=== PATIENT | male | born 1960 | race Caucasian/White ===

== ENCOUNTER → 2018-03-17 11:23 | Outpatient (CLI) | payer BC, SELFPAY ==
--- NOTE | 2018-03-17 11:51 | RAD_ITS ---
STUDY: X-RAY - PELVIS AND LEFT HIP REASON FOR EXAM: Male, 57 years old. Chronic left hip pain, no known injury. TECHNIQUE: 3 views of the pelvis and hip. COMPARISON: None. FINDINGS: There is a non-specific bowel gas pattern. There are calcified phleboliths in the pelvic soft tissues. Surgical clips at the base of the scrotum consistent with prior vasectomy. There are degenerative changes of the visualized lower lumbar spine. There is some narrowing of the lateral sacroiliac joints, consistent with degenerative osteoarthritic changes. Normal bilateral iliac wings and visualized sacrum. Normal bilateral superior and inferior pubic rami. Normal pubic symphysis. Normal bilateral ischial tuberosities. There are osteoarthritic changes of the femoral head with marginal osteophyte formation. There is exuberant osteoarthritic spur formation of the acetabular rim. Normal hip joint space. No demonstrate osseous destructive lesion or fracture. RAD/HIP, UNI W/ Pelvis 2-3 Views IMPRESSION: Moderately severe osteoarthritic degenerative change at the left hip. Electronically Signed: Zachery Will MD at 20:07 EST , Service support ,
[2018-03-17 14:38] LABS: Absolute Lymphocyte Count 2.16 X10^3/ul (0.83-4.51); Absolute Neutrophil Count 3.3 X10^3/uL (2.0-7.7); Basophil# 0.05 X10^3/uL; Basophil% 0.8 % (0-1); Eosinophil# 0.21 X10^3/uL; Eosinophils% 3.3 % (0-5); Hematocrit 41.3 % (40-54); Hemoglobin 13.4 g/dl (13.0-16.5); Lymphocyte # 2.16 X10^3/ul (4.0); Mean Corp Hgb Conc 32.4 g/gl (32-36); Mean Corpuscular Hgb 29.6 pg (27.0-32.0); Mean Corpuscular Volume 91.4 fL (80-94); Mean Platelet Vol. 9.5 fl (6.2-12.0); Monocyte% 9.4 % (0-10); Neutrophil # 3.34 X10^3/uL (2.7-7.7); Neutrophil % 52.5 % (47-70); Platelet Count 293 K/mm3 (150-450); RBC Distribution Width SD 46.8 fl (35.1-43.9); Red Blood Count 4.52 M/mm3 (4.6-6.2); White Blood Count 6.4 K/mm3 (4.4-11.0)
[2018-03-17 14:39] LABS: POSITIVE COUNT NO; POSITIVE DIFFERENTIAL NO; POSITIVE MORPHOLOGY NO
[2018-03-17 14:59] LABS: ALB/GLOB Ratio 1.4 RATIO (0.9-2.4); AST(SGOT) 11 U/L (15-37); Alanine Aminotransfer ALT/SGPT 20 U/L (16-61); Albumin, Serum 3.8 g/dL (3.2-5.0); Alkaline Phosphatase 75 U/L (45-117); Anion Gap 11 (5-15); BUN 16 mg/dL (7-18); BUN/Creat Ratio 18.8 RATIO (10-20); Calcium,Total 8.7 mg/dL (8.5-10.1); Chloride 105 mmol/L (98-107); Creatinine, Serum 0.85 mg/dL (0.70-1.30); EST Glomerular Filtration Rate 98 mL/min (>60); Est Glom Filt Rate - Afr Amer 119 mL/min (>60); Globulin 2.8 g/dL (2.2-4.2); Glucose 76 mg/dL (74-106); Potassium 4.3 mmol/L (3.5-5.1); Protein, Total 6.6 g/dL (6.4-8.2); Sodium Level 140 mmol/L (136-145)
== END ==
PROVIDERS: Family Provider Family Medicine; PCP Family Medicine; Visit Provider Family Medicine
DX: M25.552 Pain in left hip (principal)
CPT/HCPCS: 36415; 73502; 80053; 85025

== ENCOUNTER 2018-06-18 06:50 | Day surgery (SDC) | payer OTHER, SELFPAY ==
[2018-06-04 11:02] VITALS: BP 123/79; PULSE 66; RESP 16; TEMP 36.3; O2SAT 98; BMI 26.9
--- NOTE | 2018-06-04 11:09 | SDCEKG_ITS ---
Test Reason : Blood Pressure : / mmHG Vent. Rate : 063 BPM Atrial Rate : 063 BPM P-R Int : 148 ms QRS Dur : 098 ms QT Int : 392 ms P-R-T Axes : 057 014 044 degrees QTc Int : 401 ms Normal sinus rhythm Normal ECG Confirmed by JASMIN CORTEZ, DOROTEO ([id number]), subeditor BELINDA REZA ([id number]) on 06/09/2018 11:15:07 AM Referred By: Clovis Love Confirmed By:DOROTEO CASTELLANOS MD
[2018-06-04 11:41] LABS: Absolute Lymphocyte Count 2.04 X10^3/ul (0.83-4.51); Absolute Neutrophil Count 3.4 X10^3/uL (2.0-7.7); Basophil# 0.08 X10^3/uL; Basophil% 1.3 % (0-1); Eosinophil# 0.21 X10^3/uL; Eosinophils% 3.4 % (0-5); Hematocrit 42.7 % (40-54); Hemoglobin 14.2 g/dl (13.0-16.5); Lymphocyte # 2.04 X10^3/ul (4.0); Mean Corp Hgb Conc 33.3 g/gl (32-36); Mean Corpuscular Hgb 29.6 pg (27.0-32.0); Monocyte# 0.45 X10^3/uL; Monocyte% 7.3 % (0-10); Neutrophil # 3.39 X10^3/uL (2.7-7.7); Neutrophil % 54.8 % (47-70); POSITIVE COUNT NO; POSITIVE DIFFERENTIAL NO; POSITIVE MORPHOLOGY NO; Platelet Count 274 K/mm3 (150-450); RBC Distribution Width CV 14.2 % (11.6-14.6); RBC Distribution Width SD 46.4 fl (35.1-43.9); White Blood Count 6.2 K/mm3 (4.4-11.0)
[2018-06-04 11:49] LABS: Prothrombin Time (Protime)PT. 12.9 SECONDS (11.7-14.9)
[2018-06-04 11:50] LABS: Partial Thromboplast Time 30.3 Seconds (24.1-36.2)
[2018-06-04 12:30] LABS: AST(SGOT) 13 U/L (15-37); Alanine Aminotransfer ALT/SGPT 24 U/L (16-61); Albumin, Serum 3.9 g/dL (3.2-5.0); Alkaline Phosphatase 72 U/L (45-117); Anion Gap 9 (5-15); BUN 13 mg/dL (7-18); BUN/Creat Ratio 18.5 RATIO (10-20); Bilirubin, Direct 0.14 mg/dL (0.00-0.30); Calcium,Total 9.1 mg/dL (8.5-10.1); Chloride 104 mmol/L (98-107); EST Glomerular Filtration Rate 122 mL/min (>60); Est Glom Filt Rate - Afr Amer 148 mL/min (>60); Estimated Creatinine Clearance 112.64 ml/min; Globulin 3.3 g/dL (2.2-4.2); Glucose 86 mg/dL (74-106); Potassium 4.3 mmol/L (3.5-5.1); Protein, Total 7.2 g/dL (6.4-8.2); Sodium Level 138 mmol/L (136-145)
--- NOTE | 2018-06-05 10:53 | PCM.HP.BLA ---
History and Physical DATE OF SURGERY: 06/18/2018 SCHEDULED PROCEDURE: left total hip arthroplasty HISTORY OF PRESENT ILLNESS: This is a 57-year-old male who is been having ongoing left hip pain for several years. Patient states his pain has been aching. Pain can reach as high as an 8/10 with activities. Patient has pain with walking. Patient does report having pain while playing football in high school with regards to his left hip. Patient does walk with a limping gait. Patient complains of pain with activities of daily living including outdoor activities. He has tripped/stumbled secondary to his left hip pain. Patient has tried rn acute care without any relief in pain. He has tried rest, ice, elevation with only minimal relief. Patient has been on meloxicam with only minimal relief. He denies previous surgery on the left hip. Patient states the pain does awaken him at night. He currently denies any chest pain, shortness of breath, fevers chills, recent infections. Patient has obtain surgical clearance from his primary care physician Dr. You. After failing conservative measures and discussing treatment options with Dr. Clovis Love, the patient does wish to proceed with a left total hip arthroplasty. REVIEW OF SYSTEMS: ROS: Const: Denies change in appetite, fever and weight change. CV: Denies chest pain, heart murmur and irregular heartbeat. Resp: Denies cough, pneumonia, shortness of breath, tuberculosis and wheezing. GI: Denies constipation, diarrhea, heartburn, nausea, rectal itching, bloody stools and vomiting. : Denies incontinence. Musculo: Denies leg swelling, pain, trouble walking and weakness. Skin: Denies Raynaud's, history of shingles and tattoo. Neuro: Denies ambulatory dysfunction, dizziness, numbness/tingling and tremor. Psych: Denies anxiety, insomnia and stress. Scooter/Lymph: Denies anemia, bleeding/bruising tendency and past transfusion. Reviewed, no changes. PAST MEDICAL HISTORY: Advance Care Plan: No Advance Directives Effective Date: 04/01/2018 PMH: Medical Problems: No Current Problems Accidents: RT 3RD, 4TH, & 5TH Finger Injury - (2014) V & PULLY BELT Surgical Hx: RT 3RD, 4TH, & 5TH Amuptation - (2014) Anesthesia Complications: None Assistive Devices: Dentures - PARTIAL Reviewed and updated. 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 Personal Habits: Cigarette Use: Light tobacco smoker (10 or fewer cigarettes/day).Smokeless Tobacco: Never Used Smokeless Tobacco.E-Cigarette Use: Never used.Alcohol: Occasionally.Drug Use: Denies Use.Enjoy Exercising: Never Exercises. Reviewed, no changes. VITALS: Ht: 68 Wt: 177lb Wt k.287 BMI: 26.9 BP: 131/87 Pulse: 73 Resp: 18 T: 97.5 T: 36.4C ALLERGIES: Amoxicillin ALL Cillins MEDICATIONS: Oxycodone HCL 5 mg 1-2 tab by mouth every 4 hours, Promethazine HCL 12.5 mg 1-2 tablets by mouth every 6 hours, Famotidine 20 mg 1 by mouth every day, Meloxicam 15 mg half tablet twice daily with food, Meloxicam 15 mg 1 by mouth every day PRE-OP EXAM: General appearance:NORMAL Other: Eyes: Conjunctivae and lids: NORMAL Pupils: ERR Ears, Nose, Mouth, and Throat: NORMAL Other: Inspection of lips, teeth and gums: NORMAL Other: Neck: Examination of neck: no masses noted. Respiratory: Assessment of respiratory effort: NORMAL Other: Auscultation of lungs: clear to auscultation no wheezes, rhonchi or rales. Cardiovascular: Auscultation of heart: regular rate and rhythm, no murmurs, gallops or rubs. Exam of carotid arteries: NORMAL Other: Gastrointestinal: Exam of abdomen: soft, nontender, nondistended bowel sounds present. PHYSICAL EXAMINATION: Patient does walk with an antalgic gait. He has pain diffusely around the left hip. Left hip range of motion: There is a 10 flexion contracture, flexion to 80, internal rotation neutral, external rotation 20. Patient has decreased strength of the left hip secondary to pain: 4/5. Patient has a 2 mm leg length discrepancy on the left. Sensation intact to light touch. Neurovascularly intact. IMAGING STUDIES: X-rays of the left hip reveal joint space narrowing with subchondral sclerosis and osteophyte formation consistent with severe hypertrophic osteoarthritis. IMPRESSION: 1. Severe left hip osteoarthritis PLAN: Dr. Clovis Love did discuss and review with the patient all treatment options including surgical versus nonsurgical options. Patient does wish to proceed with the above-stated procedure. Potential risks, benefits, and complications of the procedure were discussed in detail including but not limited to , infection, nerve and blood vessel damage, persistent pain, numbness, tingling, paresthesias, blood clot, pulmonary embolism, and requirement for possible further surgery. The patient expressed full understanding and has no further questions for the doctor. Patient does agree to proceed with the above-stated procedure and has signed the surgery consent form. Patient was given medications to take postoperatively including meloxicam, oxycodone, famotidine, aspirin, Tylenol, and promethazine. Patient has obtain surgical clearance from his primary care physician. This dictation was created using voice recognition software. Phonetic and/or grammatical errors may exist.. ___ I have re-examined the patient. There are no clinical changes since date of exam. ___ See progress notes for changes. ___ Dictated on admission Date: Time: Signature:
[2018-06-18] VITALS (10 sets, daily range): BP systolic 95–125; BP diastolic 53–81; PULSE 60–83; RESP 16–18; TEMP 36.2–36.6; O2SAT 98–100; BMI 26.9
[2018-06-18] MEDS: Celecoxib 200 MG Capsule 400 MG PO (06:05)
[2018-06-18] MEDS: Acetaminophen 500 MG Tablet 1000 MG PO ×2 (06:05→13:11)
[2018-06-18] MEDS: oxyCODONE HCl Cr 10 MG Tablet PO (06:06)
[2018-06-18] MEDS: Lactated Ringers 1,000 ML 999 ML IV ×2 (06:30→09:45)
--- NOTE | 2018-06-18 07:18 | RAD_ITS ---
STUDY: X-RAY - LEFT HIP REASON FOR EXAM: Male, 57 years old. Left hip replacement. TECHNIQUE: 2 views of the hip. COMPARISON: None. FINDINGS: The patient is status post left total hip replacement. There is good alignment. Postoperative soft tissue swelling. There is evidence of a femoral acetabular impingement of the right hip. RAD/Hip Min 2 Views (Portable) IMPRESSION: Status post left hip replacement. There is good alignment. Postoperative soft tissue changes. Electronically Signed: Pedro Mendoza MD at 14:32 EST , Service support ,
--- NOTE | 2018-06-18 07:30 | RAD_ITS ---
STUDY: X-RAY - LEFT HIP REASON FOR EXAM: Male, 57 years old. Left hip replacement. TECHNIQUE: 2 views of the hip. COMPARISON: None. FINDINGS: Intraoperative imaging provided for left anterior hip replacement. There is good alignment. RAD/Hip 1 view with Pelvis IMPRESSION: Intraoperative imaging provided for left hip replacement. There is good alignment. Electronically Signed: Pedro Mendoza MD at 14:24 EST , Service support ,
--- NOTE | 2018-06-18 09:01 | OP.PCM_ITS ---
Report of Operation Date of Procedure: 06/18/18 Pre-Operative Diagnosis: Left hip primary osteoarthritis Post-Operative Diagnosis: Left hip primary osteoarthritis Surgery/Procedure Performed:: Left direct anterior total hip replacement Description of Surgical Findings:: Stable hip with equal leg lengths. Large inferior superior and anterior osteophytes were debrided harness maker: Tanisha Osorio Type of Anesthesia:: Spinal Anesthesiologist: Ramsey Mcnulty Special Medications: 600 mg clindamycin, 1 g TXA at incision, 1 g TXA closure, 10 mg Decadron, joint cocktail (5 mg Duramorph, 30 mL of 0.5% Ropivicaine, 1000 units of epinephrine, 30 mg of Toradol) Specimen's removed: Bony cuts Estimated Blood Loss (mL): 100 Fluids Replaced: 1500 mL crystalloid Description of Procedure: Components used: 1. Accolade 2 Demarco femoral stem size 7 127? 2. Telferner trident 2 acetabular shell size 56 mm 3. Telferner X3 polyethylene F 4. [place]arco Biolox delta 36mm, 0mm femoral head Brief history operative indications: 57 yo M who failed conservative measures for their hip osteoarthritis. X-rays were consistent with osteoarthritis including joint space narrowing, osteophyte formation and subchondral cysts. Total hip replacement was discussed with the patient with risks and benefits including but not limited to blood loss, DVTs, PEs, neurovascular damage, dislocation, general risks of anesthesia including loss of life. Patient demonstrated an understanding medical clearance is obtained the patient was consented for surgery. Procedure: On the date of procedure the patient's L hip was marked in the preoperative area. Patient was then taken back to the operating room where anesthesia assumed control of the C-spine and airway and administered anesthetic. Patient was transferred to the operating table and placed in the supine position. The hips were placed at the break of the bed and a sacral bump was placed. The L lower extremity was then prepped out in a sterile fashion using chlorhexidine while the surgeon scrubbed. The PA was vital in the positioning of the patient. Upon reentering the room the L lower extremity was draped in the standard orthopedic fashion and the incision was marked. A timeout was called and everyone agreed upon the side, the site, the procedure be performed, antibody given, and patient's identity. At this time incision was made through skin, subcutaneous tissue, and fat down to fascia. The fascia was then incised and the TFL was retracted laterally. A retractor was placed on the lateral border of the femoral neck. Attention was directed to the inferior portion of the approach and all crossing vessels were identified and appropriately coagulated. A retractor was then placed on the medial portion of the femoral neck. The anterior capsule was then cleared of all soft tissue and then H shaped capsulotomy was made. The retractors were then placed inside the capsule. The femoral neck was identified and a cleanup cut was made. At this time a power corkscrew was used to remove the femoral head. Attention was then turned toward the acetabulum where the soft tissues were appropriately retracted and the acetabulum was sequentially reamed to 56 mm. A 56 mm cup was then selected and impacted into place. Live fluoroscopy was used to verify implant position. After doing this we aggressively debrided the surrounding osteophytes. Laparoscopy was then used to verify appropriate osteophyte debridement. Once we are happy with this the acetabular liner was impacted into place and locking mechanism was verified. Attention was then turned to the femur. Soft tissue releases on the medial and lateral femoral neck were appropriately done, the leg was externally rotated and lateralized. A Rayo retractor was placed medially and proximally to the greater trochanter this allowed appropriate visualization and exposure of the femoral canal. Rongeour was then used to remove excess lateral bone. A canal finder and entry broach were used to open the proximal canal. Once we verified we were down the femoral canal we subsequently broached up to a size 7 femur. The appropriate neck was placed in the previously selected head was trialed with a 0 mm neck. Traction was pulled and the hip was reduced with internal rotation. Once it was appropriately reduced and stability was checked. There was minimal shuck, equal leg lengths and appropriate stability with hyperexten lyla and external rotation as well as with 90? flexion and internal rotation. Fluoroscopy was then also used to verify the position of the components and leg lengths using the contralateral side for comparison. The trial components were then dislocated the proximal femur was again exposed and the components were removed from the wound. The final components were verified and opened. The wound was copiously irrigated out with normal saline. The acetabulum was checked for any residual debris. The final components were placed and impacted. Traction and internal rotation were again used to reduce the hip. After adequate reduction the hip remained stable with appropriate leg lengths. The final components were once again checked with live fluoroscopy and were found to be satisfactory. The wound was then copiously irrigated with normal saline once more, and hemostasis was obtained. Closure was then done using #1 Vicryl runner to close the fascia. A 2-0 vicryl interuppted sutures were used to close the subcutaneous skin. A 3-0 Monocryl and Steri-Strips were used for final skin closure. A Silverlon dressing was placed. Patient was awakened by anesthesia and transferred to the [facility]. Patient was then transferred to the PACU for recovery. Postoperative plan: Patient will get 24 hours postop antibiotics. Patient will get in-house physical therapy and will be weight-bear as tolerated. Patient will follow up in office in 2 weeks for a wound check and x-rays. Grafts/Implants Used: Telferner Accolade 2, Trident 2 - Complications No intraoperative complications - Admit VTE Documentation VTE Present on Admission: No VTE Mechan Device Prophylaxis: SCD's, Thigh High HENRY Hose VTE Pharm Prophylaxis ordered?: Yes
[2018-06-18] MEDS: Scopolamine 1mg/72hr Patch 1 PATCH TD (09:32)
--- NOTE | 2018-06-18 11:45 | SUR.PHASEII ---
pt sitting up in bed talking with family. pt not able to perform ankle pumps. pt is able to move legs. menu given to pt to order lunch. denied pain.
--- NOTE | 2018-06-18 13:27 | SUR.PHASEII ---
Pt ate 100% of lunch. PT here to walk pt.
== END 2018-06-18 14:52 | disposition home or self-care (01) ==
LOC: ACINP 06-19 09:31 → SDC 06-19 10:47 → ACINP 06-19 10:48
PROVIDERS: Anesthesiology; Family Provider Family Medicine; PCP Family Medicine; Referring Provider Specialist; Visit Provider Specialist
PROC: (CPT 27284; principal; 2018-06-18 06:50)
DX: M16.12 Unilateral primary osteoarthritis, left hip (principal); F10.20 Alcohol dependence, uncomplicated; Y90.9 Presence of alcohol in blood, level not specified; F17.210 Nicotine dependence, cigarettes, uncomplicated
CPT/HCPCS: 27130; 73501; 73502; 76000; 80048; 80076; 85025; 85610; 85730; 87077; 87081; 93005; 97162; 97166; C1776; J7120

== ENCOUNTER → 2018-06-26 10:09 | Outpatient (CLI) | payer OTHER, SELFPAY ==
[2018-06-18 05:51] VITALS: BMI 26.9
== END ==
PROVIDERS: Family Provider Family Medicine; PCP Family Medicine; Referring Provider Specialist; Visit Provider Specialist
DX: Z96.642 Presence of left artificial hip joint (principal)
CPT/HCPCS: 99211; G0463

== ENCOUNTER 2018-07-02 09:30 | Inpatient (IN) | payer OTHER, SELFPAY ==
[2018-06-18 05:51] VITALS: BMI 26.9
[2018-07-02] VITALS (9 sets, daily range): BP systolic 106–141; BP diastolic 65–87; PULSE 60–70; RESP 16–20; TEMP 36–36.9; O2SAT 95–100; BMI 26.7
[2018-07-02] MEDS: Acetaminophen 500 MG Tablet 1000 MG PO ×3 (10:07→21:28)
[2018-07-02] MEDS: Celecoxib 200 MG Capsule 400 MG PO (10:07)
[2018-07-02] MEDS: Lactated Ringers 1,000 ML 999 ML IV (10:20)
--- NOTE | 2018-07-02 12:50 | RAD_ITS ---
STUDY: X-RAY - LEFT HIP REASON FOR EXAM: Male, 57 years old. Left hip arthroplasty TECHNIQUE: 1 fluoroscopic view of the hip. COMPARISON: None. FINDINGS: Fluoroscopic guidance was provided during left hip replacement. Correlation with the operative report is recommended. RAD/Hip 1 view with Pelvis IMPRESSION: As above. Electronically Signed: Clovis Murdock, at 15:35 EST Tel , Service support ,
--- NOTE | 2018-07-02 13:50 | RAD_ITS ---
STUDY: X-RAY - LEFT HIP REASON FOR EXAM: Male, 57 years old. Postop TECHNIQUE: 4 views of the hip. COMPARISON: 06/18/2018 FINDINGS: The patient is status post left hip arthroplasty. The hardware is intact and alignment is satisfactory. There is no acute fracture or dislocation. RAD/Hip Min 2 Views (Portable) IMPRESSION: Status post left hip arthroplasty with intact hardware in satisfactory alignment. Electronically Signed: Clovis Murdock, at 15:36 EST Tel , Service support ,
--- NOTE | 2018-07-02 13:50 | OP.PCM_ITS ---
Report of Operation Date of Procedure: 07/02/18 Pre-Operative Diagnosis: Left hip draining wound Post-Operative Diagnosis: Left hip draining wound Surgery/Procedure Performed:: Left hip irrigation debridement, 1 stage revision of hip replacement all components. Description of Surgical Findings:: Copious amounts of fluid deep to the fascia with a rent in the fascia. No gross purulence was encountered. property manager: Gregg Steiner Type of Anesthesia:: Spinal Anesthesiologist: Denver Thomas Special Medications: 600 mg Clinimix, 1 g TXA at incision, 1 g TXA closure, 10 mg Decadron, joint cocktail (5 mg Duramorph, 30 mL of 0.5% Ropivicaine, 1000 units of epinephrine, 30 mg of Toradol) Specimen's removed: 3 separate specimens were sent to microbiology, fluid was aspirated and sent to microbiology. Estimated Blood Loss (mL): 100 Fluids Replaced: Crystalloid Description of Procedure: Components used: 1. Accolade 2 Demarco femoral stem size 7 127? 2. [place] trident 2 acetabular shell size 56 mm 3. [place] X3 polyethylene f 4. Demarco Biolox delta 36mm, +2.5mm femoral head Brief history operative indications: 57 yo M who failed conservative measures for their hip osteoarthritis. Patient had a total hip replacement 2 weeks ago. He did well for 1 week. After 1 week he called the office with drainage from his incision midportion. A wound VAC was placed for 1 week and patient was placed on doxycycline. Patient continued to drain. He had no signs of infection no redness but he did have swelling of the hip consistent with a deep seroma. At this time evacuation of seroma and one stage revision of total hip replacement was discussed with the patient with risks and benefits including but not limited to blood loss, DVTs, PEs, neurovascular damage, dislocation, general risks of anesthesia including loss of life. Patient demonstrated an understanding medical clearance is obtained the patient was consented for surgery. Procedure: On the date of procedure the patient's L hip was marked in the preoperative area. Patient was then taken back to the operating room where anesthesia assumed control of the C-spine and airway and administered anesthetic. Patient was transferred to the operating table and placed in the supine position. The hips were placed at the break of the bed and a sacral bump was placed. The L lower extremity was then prepped out in a sterile fashion using chlorhexidine while the surgeon scrubbed. The PA was vital in the positioning of the patient. Upon reentering the room the L lower extremity was draped in the standard orthopedic fashion and the incision was marked. A timeout was called and everyone agreed upon the side, the site, the procedure be performed, antibody given, and patient's identity. At this time incision was made through skin, using the previous incision and extending approximately distally 1 cm. At this time copious amounts of serous fluid came to the wound. There was a superficial area. However as we tracked this down there was a 2 cm rent in the fascia repair at the midportion consistent with where the skin was draining. An 18- gauge needle was used to aspirate some of the deep fluid which was sent for analysis and culture. The remainder of the fascia was then incised previous sutures were then removed and the TFL was retracted laterally. A retractor was placed on the lateral border of the femoral neck. Attention was directed to the inferior portion of the approach and all crossing vessels were identified and appropriately coagulated. A retractor was then placed on the medial portion of the femoral neck. At this time we proceeded to debride the joint and perform a synovectomy of synovium and new scar tissue. Once a synovectomy was performed we did send cultures of the synovium. The hip was dislocated. Based on the amount of deep copious fluid at this time we elected to do one stage revision. The femur was exposed and a bone tamp was used to remove the ceramic head from the previous stem. The stem was exposed and the threaded extractor was placed in the proximal portion of the stem and used a back slap the extractor out. Some of the synovium from the canal was removed and sent for culture. At this time the acetabulum was exposed. An osteotome was used to remove the acetabular liner and the industrial psychology teacher was screwed into the acetabular implant and it was removed. Synovium from behind the acetabular implant was sent for culture. At this time we took the 56 mm reamer and reamed any membrane slightly deepening the acetabular reaming. Once this was done we directed our attention to the femur. We re-broached the 7 femur seating it slightly deeper removing any membrane from the femoral canal. Once this was done 6 L of normal saline were irrigated throughout the wound under low pressure lavage and the remainder of the synovectomy was completed. Once this was done we again reexamined the wound and no suspicious fluid or tissue. There were no areas of excessive bleeding. Attention was then turned toward the acetabulum where the soft tissues were appropriately retracted and the 56 mm cup was then selected and impacted into place. Acetabular liner was impacted into place and locking mechanism was verified. The position of the acetabular cup was then verified under live fluoroscopy. Attention was then turned to the femur. At this time the size 7 127 degree Accolade 2 femoral stem was opened and impacted into place. We then trialed using a +2.5 mm femoral head. Once it was appropriately reduced and stability was checked. There was minimal shuck, equal leg lengths and appropriate stability with hyperextension and external rotation as well as with 90? flexion and internal rotation. Fluoroscopy was then also used to verify the position of the components and leg lengths using the contralateral side for comparison. The trial components were then dislocated the proximal femur was again exposed and the trial head was removed from the wound. The final components were verified and opened. The wound was copiously irrigated out with normal saline. The acetabulum was checked for any residual debris. The final components were placed and impacted. Traction and internal rotation were again used to reduce the hip. After adequate reduction the hip remained stable with appropriate leg lengths. The final components were once again checked with live fluoroscopy and were found to be satisfactory. The wound was then copiously irrigated with normal saline once more, and hemostasis was obtained. Closure was then done using #1 Vicryl runner to close the fascia tightly. A #1 Vicryl interuppted sutures were used to close the deep layer and subcutaneous skin. A 3-0 nylon interrupted layer was used for final skin closure. A Silverlon dressing was placed. Patient was awakened by anesthesia and transferred to the [facility]. Patient was then transferred to the PACU for recovery. Postoperative plan: Patient will get 24 hours postop antibiotics. Patient will get in-house physical therapy and will be weight-bear as tolerated. Patient will follow up in office in 2 weeks for a wound check and x-rays. During the course of the procedure the physician junior administrative assistant played a vital role. His intimate knowledge of my steps in the procedure aided in safe and expedient completion of the procedure. The PA played a vital rolls in positioning particularly in obtaining the appropriate positioning of the sacral bump. The PA was also vital in the retraction of soft tissues during the exposure and especially the femoral work as this is a vital part of the procedure to prevent complications and fractures. The PA was also vital and protecting soft tissues during times of bony cuts and reaming. He also played a vital role in closure with my direct supervision. The PA was also important during reduction and dislocation of the joint and trials intraoperatively. - Complications No intraoperative complications. - Admit VTE Documentation VTE Present on Admission: No VTE Mechan Device Prophylaxis: SCD's, Thigh High HENRY Hose VTE Pharm Prophylaxis ordered?: Yes
[2018-07-02] MEDS: Scopolamine 1mg/72hr Patch 1 PATCH TD (13:51)
--- NOTE | 2018-07-02 14:26 | PCM.RX.CS ---
Consult Pharmacy has been consulted to manage selected antiobiotic: Vancomycin Type of Consult: New start Suspected Infection: Other Prior Doses of Antibiotics Received/Current Regimen: NEW START = 0 Labs: PRIOR TO 4TH DOSE Weight used for dosin.8 kg Estimated Creatinine Clearance: 112 Goal Trough: 15-20 mcg/mL - 1250MG IVPB LOADING DOSE THEN 1 GRAM Q8H WITH TROUGH LEVEL ORDERED PRIOR TO 4TH DOSE Pharmacy Plan for Drug Dosing: Pharmacy Service will continue to monitor and adjust dosing as required.
[2018-07-02 14:57] LABS: AUTO B FLUID DILUENT BKGD CT WBC <0.1 RBC <0.01 (W<.1,R<.01)
[2018-07-02 14:58] LABS: Appearance /Synovial Fluid Cloudy (CLEAR); Color / Synovial Fluid Red (Pale Yellow); Source / Synovial Fluid LEFT HIP; Viscosity / Synovial Fluid Liquid (HIGH)
[2018-07-02 14:59] LABS: RBC /Synovial Fluid 0.236 10^6/uL (0); Synovial Fld Mononuclear WBC # 0.429 10^3/ul; Synovial Fld Mononuclear WBC % 13.5 %; Synovial Fld Polynuclear WBC # 2.742 10^3/ul; Synovial Fld Polynuclear WBC % 86.5 %
[2018-07-02 15:48] LABS: Lymph 7 %; Monocyte /Synovial Fluid 4 %; Neutrophil 86 % (0-25); Other Cell /Synovial Fluid 3 %
[2018-07-02] MEDS: Lactated Ringers 1,000 ML 125 ML IV (16:07)
[2018-07-02] MEDS: Aspirin 81 MG TAB.CHEW PO (16:08)
--- NOTE | 2018-07-02 16:56 | PCM.PN.HOSP ---
Subjective: Follow-up for nonhealing of the wound. Seeping woundThe patient underwent a left knee replacement on June 18. Days afterwards he developed that was having serous fluid. Was seeing wound care and started on antibiotics. Decision was made to extract his hip replacement where he had debridement and replacement of the apparatus. Patient denies any erythema purulence from the wound Vitals/I&O's: Vital Signs Temp Pulse Resp BP Pulse Ox 36.7 C 61 18 127/72 H 99 07/02/18 14:55 07/02/18 14:55 07/02/18 14:55 07/02/18 14:55 07/02/18 14:55 Oxygen Delivery Method Room Air Weight: 79.8 kg Body Mass Index (BMI) 26.7 Intake and Output for Last 24 Hours 06/30/18 07/01/18 07/02/18 23:59 23:59 23:59 Intake Total 1300 / 1300 Balance 1300 / 1300 General: Alert, Cooperative, No apparent distress HEENT: Atraumatic, Normocephalic Oral: Moist Mucosa, No Gingival or Mucosal Lesions/ Ulcerations Neck: No Nodes, Thyroid Normal Size and Texture Lungs: Clear to auscultation, Normal air movement, No rhonchi, No wheeze Cardiovascular: Regular rate, Regular Rhythm, Normal S1, Normal S2 Abdomen: Bowel Sounds Present, Soft, Non Tender, Non-Distended Extremities: No edema, No Calf Tenderness Skin: - - Left knee improved Psych/Mental Status: Normal Affect, Appropriate Laboratory Results 07/02/18 13:54: Fluid Source Cancelled, Fluid Color Cancelled, Fluid Appearance Cancelled, Fluid WBC Cancelled, Fluid RBC Cancelled, Fluid Tot Cell Count Cancelled, Fld Polynuclear WBCs # Cancelled, Fld Polynuclear WBCs % Cancelled, Fluid Mononuclear WBCs Cancelled, Fld Mononuclear WBCs % Cancelled, Fluid Neutrophils Cancelled, Fluid Lymphocytes Cancelled, Fluid Monocytes Cancelled, Fluid Plasma Cells Cancelled, Fluid Macrophages Cancelled, Fld Mesothelial Cells Cancelled, Fluid Other Cells Cancelled, Fl Pathologist Comment Cancelled, Fluid Comment 2 Cancelled, Synovial Source LEFT HIP, Synovial Color Red, Synovial Appearance Cloudy, Synovial Viscosity Liquid, Synovial WBC 3.1710 H, Synovial RBC 0.236 H, Synovial Tot Cell Ct 3.2030 H, Synov Polynuclear WBCs 2.742, Synov Mononuclear WBCs 0.429, Synovial Neutrophils 86 H, Synovial Lymphocytes 7, Synovial Monocytes 4, Synovial Other Cells 3, Synovial Polynuclear % 86.5, Synovial Mononuclear % 13.5, Synovial Path Comment May follow Current Medications Acetaminophen (Tylenol) 1,000 mg PO Q8 [facility] Last Admin: 07/02/18 16:07 Dose: 1,000 mg Aspirin (Aspirin, Baby) 81 mg PO BIDCM [facility] Last Admin: 07/02/18 16:08 Dose: 81 mg Doxycycline Monohydrate (Doxycycline) 100 mg PO BID [facility] Stop: 07/09/18 22:01 Famotidine (Pepcid) 20 mg PO DAILY [facility] Clindamycin Phosphate 600 mg/ (Dextrose) 54 mls @ 100 mls/hr IV Q6 [facility] Stop: 07/03/18 06:33 Lactated Ringer's () 1,000 mls @ 125 mls/hr IV .Q8H [facility] Last Admin: 07/02/18 16:07 Dose: 125 mls/hr Vancomycin HCl 1,197 mg/ (Dextrose) 273.94 mls @ 250 mls/hr IV RX TO DOSE PRN Vancomycin HCl 1,000 mg/ (Sodium Chloride) 200 mls @ 200 mls/hr IV Q8 [facility] Ketorolac Tromethamine (Toradol) 15 mg IV Q6H PRN PRN PRN Reason: MILD-MOD PAIN (1-5/10) Stop: 07/07/18 13:37 Meloxicam (Mobic) 7.5 mg PO BID [facility] Morphine Sulfate () 2 - 4 mg IV Q2H PRN PRN PRN Reason: SEVERE PAIN (6-10/10) Morphine Sulfate () 2 - 4 mg IV Q2H PRN PRN PRN Reason: SEVERE PAIN (6-10/10) Nutritional Formula (Lactose Free) (Ensure Clear) 120 ml PO TIDCM [facility] Ondansetron HCl (Zofran) 4 mg IV Q8H PRN PRN PRN Reason: NAUSEA Oxycodone HCl (Oxyir) 5 - 10 mg PO Q4H PRN PRN PRN Reason: MOD-SEVERE PAIN (4-10/10) Promethazine HCl (Phenergan) 12.5 mg IM Q6H PRN PRN; Protocol PRN Reason: NAUSEA/VOMITING Senna/Docusate Sodium (Senokot-S, Anna-Colace) 2 tablet PO BID [place] Sodium Chloride () 5 - 15 ml IV UD PRN PRN Reason: SALINE FLUSH Medical Necessity - Tobacco Use Smoking Status: Former smoker Assessment/Plan 1. Left knee wound: s/p extraction. On empiric abx. Await cultures. 2. DVT proph: ASA 81mg per ortho Thanks for consult. Will follow up while in hospital. Code Visit Inpatient E&M: 48728 Subs Hosp L2
--- NOTE | 2018-07-02 17:07 | PN_ITS ---
Subjective: Follow-up for nonhealing of the wound. Seeping woundThe patient underwent a left knee replacement on June 18. Days afterwards he developed that was having serous fluid. Was seeing wound care and started on antibiotics. Decision was made to extract his hip replacement where he had debridement and replacement of the apparatus. Patient denies any erythema purulence from the wound Vitals/I&O's: Vital Signs Temp Pulse Resp BP Pulse Ox 36.7 C 61 18 127/72 H 99 07/02/18 14:55 07/02/18 14:55 07/02/18 14:55 07/02/18 14:55 07/02/18 14:55 Oxygen Delivery Method Room Air Weight: 79.8 kg Body Mass Index (BMI) 26.7 Intake and Output for Last 24 Hours 06/30/18 07/01/18 07/02/18 23:59 23:59 23:59 Intake Total 1300 / 1300 Balance 1300 / 1300 General: Alert, Cooperative, No apparent distress HEENT: Atraumatic, Normocephalic Oral: Moist Mucosa, No Gingival or Mucosal Lesions/ Ulcerations Neck: No Nodes, Thyroid Normal Size and Texture Lungs: Clear to auscultation, Normal air movement, No rhonchi, No wheeze Cardiovascular: Regular rate, Regular Rhythm, Normal S1, Normal S2 Abdomen: Bowel Sounds Present, Soft, Non Tender, Non-Distended Extremities: No edema, No Calf Tenderness Skin: - - Left knee improved Psych/Mental Status: Normal Affect, Appropriate Laboratory Results 07/02/18 13:54: Fluid Source Cancelled, Fluid Color Cancelled, Fluid Appearance Cancelled, Fluid WBC Cancelled, Fluid RBC Cancelled, Fluid Tot Cell Count Cancelled, Fld Polynuclear WBCs # Cancelled, Fld Polynuclear WBCs % Cancelled, Fluid Mononuclear WBCs Cancelled, Fld Mononuclear WBCs % Cancelled, Fluid Neutrophils Cancelled, Fluid Lymphocytes Cancelled, Fluid Monocytes Cancelled, Fluid Plasma Cells Cancelled, Fluid Macrophages Cancelled, Fld Mesothelial Cells Cancelled, Fluid Other Cells Cancelled, Fl Pathologist Comment Cancelled, Fluid Comment 2 Cancelled, Synovial Source LEFT HIP, Synovial Color Red, Synovial Appearance Cloudy, Synovial Viscosity Liquid, Synovial WBC 3.1710 H, Synovial RBC 0.236 H, Synovial Tot Cell Ct 3.2030 H, Synov Polynuclear WBCs 2.742, Synov Mononuclear WBCs 0.429, Synovial Neutrophils 86 H, Synovial Lymphocytes 7, Synovial Monocytes 4, Synovial Other Cells 3, Synovial Polynuclear % 86.5, Synovial Mononuclear % 13.5, Synovial Path Comment May follow Current Medications Acetaminophen (Tylenol) 1,000 mg PO Q8 [facility] Last Admin: 07/02/18 16:07 Dose: 1,000 mg Aspirin (Aspirin, Baby) 81 mg PO BIDCM [facility] Last Admin: 07/02/18 16:08 Dose: 81 mg Doxycycline Monohydrate (Doxycycline) 100 mg PO BID [facility] Stop: 07/09/18 22:01 Famotidine (Pepcid) 20 mg PO DAILY [facility] Clindamycin Phosphate 600 mg/ (Dextrose) 54 mls @ 100 mls/hr IV Q6 [facility] Stop: 07/03/18 06:33 Lactated Ringer's () 1,000 mls @ 125 mls/hr IV .Q8H [facility] Last Admin: 07/02/18 16:07 Dose: 125 mls/hr Vancomycin HCl 1,197 mg/ (Dextrose) 273.94 mls @ 250 mls/hr IV RX TO DOSE PRN Vancomycin HCl 1,000 mg/ (Sodium Chloride) 200 mls @ 200 mls/hr IV Q8 [facility] Ketorolac Tromethamine (Toradol) 15 mg IV Q6H PRN PRN PRN Reason: MILD-MOD PAIN (1-5/10) Stop: 07/07/18 13:37 Meloxicam (Mobic) 7.5 mg PO BID [facility] Morphine Sulfate () 2 - 4 mg IV Q2H PRN PRN PRN Reason: SEVERE PAIN (6-10/10) Morphine Sulfate () 2 - 4 mg IV Q2H PRN PRN PRN Reason: SEVERE PAIN (6-10/10) Nutritional Formula (Lactose Free) (Ensure Clear) 120 ml PO TIDCM [facility] Ondansetron HCl (Zofran) 4 mg IV Q8H PRN PRN PRN Reason: NAUSEA Oxycodone HCl (Oxyir) 5 - 10 mg PO Q4H PRN PRN PRN Reason: MOD-SEVERE PAIN (4-10/10) Promethazine HCl (Phenergan) 12.5 mg IM Q6H PRN PRN; Protocol PRN Reason: NAUSEA/VOMITING Senna/Docusate Sodium (Senokot-S, Anna-Colace) 2 tablet PO BID [place] Sodium Chloride () 5 - 15 ml IV UD PRN PRN Reason: SALINE FLUSH Medical Necessity - Tobacco Use Smoking Status: Former smoker Assessment/Plan 1. Left knee wound: s/p extraction. On empiric abx. Await cultures. 2. DVT proph: ASA 81mg per ortho Thanks for consult. Will follow up while in hospital. Code Visit Inpatient E&M: 83710 Subs Hosp L2
[2018-07-02] MEDS: Ensure Clear 120 ML Liquid PO (18:36)
[2018-07-02] MEDS: Senna/Docusate Sodium 1 Tablet 2 TABLET PO (21:28)
[2018-07-02] MEDS: Doxycycline 100 MG CAPSULE PO (21:28)
[2018-07-02] MEDS: oxyCODONE 5 MG Tablet PO (23:24)
[2018-07-03 00:31] VITALS: BP 99/59; PULSE 71; RESP 18; TEMP 36.9; O2SAT 100
[2018-07-03] MEDS: Lactated Ringers 1,000 ML 125 ML IV (06:00)
[2018-07-03] MEDS: Acetaminophen 500 MG Tablet 1000 MG PO (06:00)
[2018-07-03] MEDS: 0.9% NaCl Peripheral Flush Adult/Peds IV (06:01)
[2018-07-03 06:04] VITALS: BP 102/66; PULSE 74; RESP 18; TEMP 36.6; O2SAT 100
[2018-07-03 06:10] LABS: Hematocrit 33.1 % (40-54); Hemoglobin 10.7 g/dl (13.0-16.5); Mean Corp Hgb Conc 32.3 g/gl (32-36); Mean Corpuscular Hgb 29.1 pg (27.0-32.0); Mean Corpuscular Volume 89.9 fL (80-94); Mean Platelet Vol. 8.7 fl (6.2-12.0); Platelet Count 648 K/mm3 (150-450); RBC Distribution Width CV 14.6 % (11.6-14.6); RBC Distribution Width SD 46.8 fl (35.1-43.9); Red Blood Count 3.68 M/mm3 (4.6-6.2); White Blood Count 13.6 K/mm3 (4.4-11.0)
[2018-07-03 06:18] LABS: Scan Indicated on CBC? Y/N NO
[2018-07-03 06:21] LABS: Anion Gap 10 (5-15); BUN 14 mg/dL (7-18); BUN/Creat Ratio 21.5 RATIO (10-20); Calcium,Total 8.9 mg/dL (8.5-10.1); Chloride 108 mmol/L (98-107); Creatinine, Serum 0.65 mg/dL (0.70-1.30); EST Glomerular Filtration Rate 134 mL/min (>60); Est Glom Filt Rate - Afr Amer 162 mL/min (>60); Estimated Creatinine Clearance 121.31 ml/min; Glucose 117 mg/dL (74-106); Potassium 4.2 mmol/L (3.5-5.1); Sodium Level 142 mmol/L (136-145)
[2018-07-03] MEDS: Aspirin 81 MG TAB.CHEW PO (07:37)
[2018-07-03] MEDS: oxyCODONE 5 MG Tablet PO ×2 (07:40→11:29)
[2018-07-03] MEDS: Ensure Clear 120 ML Liquid PO (07:41)
--- NOTE | 2018-07-03 09:51 | PCM.PN.ORT ---
Subjective: The patient was sitting in bedside chair upon examination. Patient denies any chest pain, shortness of breath, dizziness, lightheadedness, nausea or vomiting, or calf pain. Pain is controlled on medications. No adverse overnight events. Overall patient is doing very well today. Patient does wish to go home today. Patient underwent a outpatient left total hip arthroplasty in which revision was performed yesterday secondary to seroma. Patient will be on antibiotics for 6 weeks postoperatively. We will follow cultures. Patient has all his medications from his previous surgery. Objective: Vital signs stable and afebrile. Patient is able to plantarflex and dorsiflex actively. Sensation is intact to light touch to saphenous, sural, superficial and deep peroneal, and tibial distribution. Dressing is clean dry and intact. Negative Homans bilaterally, negative signs and symptoms of DVT. - Physical Exam General: Alert, Oriented x3, Cooperative, No apparent distress Vital Signs Temp Pulse Resp BP Pulse Ox 97.9 F 74 18 102/66 100 07/03/18 06:04 07/03/18 06:04 07/03/18 06:04 07/03/18 06:04 07/03/18 06:04 Oxygen Delivery Method Room Air Weight: 79.8 kg Body Mass Index (BMI) 26.7 Intake and Output for Last 24 Hours 07/01/18 07/02/18 07/03/18 23:59 23:59 23:59 Intake Total 1925 Output Total 700 / 700 Balance 1925 1310 / 1310 Laboratory Tests Past 24 Hrs 07/02/18 07/03/18 07/03/18 13:54 05:40 05:40 WBC 13.6 H RBC 3.68 L Hgb 10.7 L Hct 33.1 L MCV 89.9 MCH 29.1 MCHC 32.3 RDW 14.6 RDW Differential 46.8 H Plt Count 648 H MPV 8.7 Sodium 142 Potassium 4.2 Chloride 108 H Carbon Dioxide 24.0 Anion Gap 10 BUN 14 Creatinine 0.65 L Estim Creat Clear Calc 121.31 Est GFR (MDRD) Af Amer 162 Est GFR (MDRD) Non-Af 134 BUN/Creatinine Ratio 21.5 H Glucose 117 H Calcium 8.9 Fluid Source Cancelled Fluid Color Cancelled Fluid Appearance Cancelled Fluid WBC Cancelled Fluid RBC Cancelled Fluid Tot Cell Count Cancelled Fld Polynuclear WBCs # Cancelled Fld Polynuclear WBCs % Cancelled Fluid Mononuclear WBCs Cancelled Fld Mononuclear WBCs % Cancelled Fluid Neutrophils Cancelled Fluid Lymphocytes Cancelled Fluid Monocytes Cancelled Fluid Plasma Cells Cancelled Fluid Macrophages Cancelled Fld Mesothelial Cells Cancelled Fluid Other Cells Cancelled Fl Pathologist Comment Cancelled Fluid Comment 2 Cancelled Synovial Source LEFT HIP Synovial Color Red Synovial Appearance Cloudy Synovial Viscosity Liquid Synovial WBC 3.1710 H Synovial RBC 0.236 H Synovial Tot Cell Ct 3.2030 H Synov Polynuclear WBCs 2.742 Synov Mononuclear WBCs 0.429 Synovial Neutrophils 86 H Synovial Lymphocytes 7 Synovial Monocytes 4 Synovial Other Cells 3 Synovial Polynuclear % 86.5 Synovial Mononuclear % 13.[address] Comment May follow Medical Necessity - Tobacco Use Smoking Status: Former smoker Assessment/Plan 1. S/P revision left direct anterior total hip arthroplasty POD #1 2. Continue Pain Medications: Tylenol and oxycodone 3. DVT Prophylaxis: Aspirin 81 mg twice daily with food for 4 weeks postoperatively 4. PT/OT: Weightbearing as tolerated 5. H & H: 10.7/33.1, asymptomatic 6. Reactive leukocytosis: Currently 13.6, afebrile 7. Encouraged Incentive Spirometry 8. Continue postoperative medical management per medicine 9. Continue antibiotics while following cultures: Currently pending. Patient will be on 6 weeks doxycycline postoperatively. 10. Disposition: Orthopedically stable, plan will be for discharge home today. Patient has all medications at home from previous surgery. Only prescription that will need to be filled will be the doxycycline for 6 weeks postoperatively. Discussed side effects of the doxycycline. Patient will follow-up per postop instructions.
[2018-07-03] MEDS: Doxycycline 100 MG CAPSULE PO (09:52)
[2018-07-03] MEDS: Famotidine 20 MG Tablet PO (09:52)
[2018-07-03] MEDS: Senna/Docusate Sodium 1 Tablet 2 TABLET PO (09:52)
--- NOTE | 2018-07-03 10:04 | DCINST_ITS ---
Discharge Diet: No Restrictions Discharge Activity: May Not Drive - while taking narcotic pain medications. May shower in (days): 1 - only if incision is dry and without drainage. Do NOT soak/submerge in tub/pool/pope/stream/hot tub. Weight Bearing Status: Weight bearing as tolerated - With walker Elevate: Operative Extremity Additional Activity Instructions:: Wear elastic stockings for 2 weeks. DO NOT use alcohol with narcotic pain medication. DO NOT make important decisions while taking narcotic medication. If you have problems with taking your medication (rash, itching, nausea, etc.) call the office at once. Call your doctor if your incision/area has: Increased Pain/ Swelling, Increased Redness, Foul Smelling Discharge Call your doctor if you observe: Fever of 101 or Higher Remove Dressing in (days):: 4 - Okay to remove dressing on July 07, 2018 Additional Instructions: Follow [facility] postop instructions Allergies/Adverse Reactions: Allergies amoxicillin Allergy (Verified 07/01/18 11:47) Other rash/sob cillin's Allergy (Uncoded 07/01/18 09:31) Rash/sob Medications to take at Discharge Acetaminophen [Tylenol] 1,000 mg PO Q8 14 Days tablet 07/03/18 Aspirin [Aspirin, Baby] 81 mg PO BIDCM 30 Days tab.chew 07/03/18 Doxycycline 100 mg PO BID #84 cap 07/03/18 Famotidine [Pepcid] 20 mg PO DAILY 30 Days tablet 07/03/18 Meloxicam [Mobic] 7.5 mg PO BID tablet 07/03/18 Oxycodone [Oxyir] 5 - 10 mg PO Q4H PRN PRN 7 Days tablet 07/03/18 Senna/Docusate Sodium [Senokot-S] 2 tablet PO BID 3 Days tablet 07/03/18 The following prescriptions were given: Doxycycline 100 mg PO BID #84 cap Primary Care Physician: Jose You MD [Primary Care Provider] - Test Results: Test results from this visit will be discussed in further detail at your follow- up appointment, if applicable. Please Follow Up With: Gregg Steiner PA-C When: 07/16/18 @ 9:30 am Please Follow Up With: [facility] When: scheduled for 07/08/18
--- NOTE | 2018-07-03 10:20 | CASEMGMT ---
DARREN RUBIN Face to Face with patient for initial transition planning/care coordination assessment. RN SCOTTIE introduced self and role at [facility]. Patient sitting in chair, alert and oriented, at bedside. Patient willing to participate in assessment and is able to answer all questions appropriately. Care providers, pharmacy, and demographics verified. Patient wishes to discharge home with resumption of outpatient therapy at [facility]. Patient has walker and will be providing transportation. Patient states he has no further needs or concerns at this time. CM to follow for discharge planning needs that may arise. Disposition Plan: Patient to discharge home with family support and follow-up plans in place. Bell MARTINEZ, RN, CM
[2018-07-03 11:30] VITALS: BP 100/60; PULSE 75; RESP 18; TEMP 36.8; O2SAT 100
[2018-07-03 11:45] VITALS: BP 100/60; PULSE 75; RESP 18; TEMP 36.8; O2SAT 100
[2018-07-03 13:28] LABS: Pathologist Comment Reviewed
== END 2018-07-03 11:45 | disposition home or self-care (01) | DRG 909 ==
LOC: ACINP 09:33 → MS3 11:32
PROVIDERS: Admitting Provider Specialist; Family Provider Family Medicine; PCP Family Medicine; Referring Provider Specialist; Visit Provider Internal Medicine
PROC: 0SBB0ZZ Excision of Left Hip Joint, Open Approach (ICD-10-PCS; principal; 2018-07-02 11:05)
DX: M96.842 Postprocedural seroma of a musculoskeletal structure following a musculoskeletal system procedure (principal); Z96.642 Presence of left artificial hip joint
CPT/HCPCS: 36415; 73501; 73502; 76000; 80048; 85027; 87015; 87070; 87075; 87102; 87116; 87205; 87206; 89050; 89051; 97110; 97116; 97162; 97165; 97530; 99251; 99406; C1776; J7050; J7120; A4216; G0463

== ENCOUNTER → 2020-10-07 08:04 | Outpatient (CLI) | payer BC, SELFPAY ==
[2018-07-02 14:55] VITALS: BMI 26.7
[2020-10-07 10:36] LABS: ALB/GLOB Ratio 1.1 RATIO (0.9-2.4); AST(SGOT) 15 U/L (15-37); Alanine Aminotransfer ALT/SGPT 26 U/L (16-61); Albumin, Serum 3.8 g/dL (3.2-5.0); Alkaline Phosphatase 77 U/L (45-117); Anion Gap 6 (5-15); BUN 22 mg/dL (7-18); BUN/Creat Ratio 26.6 RATIO (10-20); Calcium,Total 8.9 mg/dL (8.5-10.1); Chloride 104 mmol/L (98-107); Cholesterol 128 mg/dL (200); Creatinine, Serum 0.83 mg/dL (0.70-1.30); EST Glomerular Filtration Rate 101 mL/min (>60); Est Glom Filt Rate - Afr Amer 122 mL/min (>60); Globulin 3.5 g/dL (2.2-4.2); Glucose 111 mg/dL (74-106); High Density Lipoprotein 74 mg/dL; Microalbumin,Random Urine 19.3 mg/L (NO RANGE EST.); Microalbumin:Creatinine Ratio 38.8 mg/g CRE (<30 mg/g CRE); PSA,Total - Annual Screen 0.92 ng/mL (0.00-4.00); Potassium 4.4 mmol/L (3.5-5.1); Protein, Total 7.3 g/dL (6.4-8.2); Sodium Level 137 mmol/L (136-145); Triglycerides 44 mg/dL; Very Low Density Lipoprotein 9 mg/dL (5-40)
== END ==
PROVIDERS: PCP Family Medicine; Referring Provider Family Medicine; Visit Provider Family Medicine
DX: Z13.220 Encounter for screening for lipoid disorders (principal); R03.0 Elevated blood-pressure reading, without diagnosis of hypertension; Z12.5 Encounter for screening for malignant neoplasm of prostate
CPT/HCPCS: 36415; 80053; 80061; 82043; 82570; 84153; G0103

== ENCOUNTER → 2020-10-14 14:20 | Outpatient (CLI) | payer BC, SELFPAY ==
[2018-07-02 14:55] VITALS: BMI 26.7
--- NOTE | 2020-10-14 14:24 | CT_ITS ---
STUDY: LOW DOSE CT LUNG CANCER SCREENING REASON FOR EXAM: Male, 60 years old. TOBACCO USE. Intermittent cigar smoker. RADIATION DOSAGE (If Supplied By Facility): CTDIvol = ( 3.02 ) mGy, DLP = ( 107.97 ) mGycm TECHNIQUE: No contrast was administered. Low dose technique was utilized (average mAS-38 and kVp 120). 1.25 mm axial source images with a slice interval of 1.25-mm were reconstructed in lung windows. 2.5 mm axial source images with a slice interval of 2.5-mm were reconstructed in lung windows. 5.0 mm axial source images with a slice interval of 5.0-mm were reconstructed in soft tissue windows. Nodule measured using lung windows on PACS and/or independent workstation with automated measurement of minimum and maximum diameter. Nodule measurement reported as average diameter rounded to the nearest whole number. Growth is defined as an increase ins size of greater than 1.5 mm. COMPARISON: None. NODULES: Calcified granuloma in the anterior aspect of the right upper lobe. Calcified granulomas along the posterior medial aspect of the right upper lobe. Emphysema: Minimal increased linear markings in the medial aspect of the right middle lobe as well as the lingular segment of the left upper lobe suggests some mild scarring. Endobronchial lesion: None Aorta: Calcified aortic plaques. Coronary arteries: Unremarkable Heart: Small pericardial effusion. Pulmonary artery: Unremarkable Mediastinal nodes: Calcified right hilar and pretracheal lymph nodes. Small mediastinal lymph nodes. Other chest and abdominal findings: CT/Low Dose CT Lung Screening IMPRESSION: Lung-RADS category 2 - Continue annual screening with LDCT in 12 months. IMPORTANT NOTES FOR USE: ACR Lung-RADS Version 1.1 Assessment Categories Release Date: 2018 Category: Coded 0-4 bases on nodule(s) with highest degree of suspicion. Negative screen is defined as categories 1 and 2; a positive screen is defined as categories 3 and 4. Category 3 and 4A nodules that are unchanged on interval CT should be coded as category 2, and individuals returned to screening in 12 months. Category 4X: Category 3 or 4 nodules with additional imaging findings that increase the suspicion of lung cancer, such as spiculation, GGN that doubles in size in 1 year, enlarged lymph notes, etc. Category Modifiers: S (significant finding unrelated to lung cancer) Electronically Signed: Pedro Mendoza MD at 15:00 EDT , Service support ,
== END ==
PROVIDERS: PCP Family Medicine; Referring Provider Family Medicine; Visit Provider Family Medicine
DX: Z12.2 Encounter for screening for malignant neoplasm of respiratory organs (principal); Z72.0 Tobacco use
CPT/HCPCS: 71271

== ENCOUNTER 2021-05-25 10:44 | Outpatient (CLI) | payer BC, SELFPAY ==
[2021-05-25 13:48] LABS: Microalbumin,Random Urine 5.4 mg/L (NO RANGE EST.); Microalbumin:Creatinine Ratio 11.6 mg/g CRE (<30 mg/g CRE)
[2021-05-25 14:07] LABS: Anion Gap 7 (5-15); BUN 11 mg/dL (7-18); BUN/Creat Ratio 15.7 RATIO (10-20); Calcium,Total 9.6 mg/dL (8.5-10.1); Chloride 105 mmol/L (98-107); EST Glomerular Filtration Rate 122 mL/min (>60); Est Glom Filt Rate - Afr Amer 147 mL/min (>60); Glucose 92 mg/dL (74-106); Potassium 5.1 mmol/L (3.5-5.1); Sodium Level 138 mmol/L (136-145)
== END 2021-05-25 23:59 | disposition short-term general hospital (02) ==
LOC: MFPLAB 10:46
PROVIDERS: PCP Family Medicine; Referring Provider Family Medicine; Visit Provider Family Medicine
DX: I10 Essential (primary) hypertension (principal)
CPT/HCPCS: 36415; 80048; 82043; 82570

== ENCOUNTER 2021-05-27 20:35 | Emergency (ER) | payer BC, SELFPAY ==
[2021-05-27 22:41] LABS: Mucous, Urine 0 SEEN /hpf (<or=2+); Squamous Epithelial Cells - UA 0 SEEN /hpf (0-5)
[2021-05-27 22:46] LABS: Color, Urine Yellow (Yellow); Glucose, Dipstick Normal (Normal); Ketone-Dipstick Negative (Negative); Leukocyte Esterase-Dipstick 500 /ul (Negative); Nitrite-Dipstick Negative (Negative); Occult Blood-Urine 10 /ul (Negative); Protein-Dipstick Negative (Negative); Urine Bilirubin Dipstick Negative (Negative); Urine Clarity Clear (Clear); Urine Urobilinogen Normal (Normal)
--- NOTE | 2021-05-27 23:00 | RAD_ITS ---
STUDY: X-RAY - UNILATERAL RIBS ( RIGHT ) WITH CHEST REASON FOR EXAM: Male, 60 years old. INJURY TECHNIQUE - RIBS: 4 view(s) of the ribs. TECHNIQUE - CHEST: Single frontal view of the chest. COMPARISON: CT chest 10/14/2020 FINDINGS - RIBS: Nondisplaced fracture of fourth rib laterally on the right. FINDINGS - CHEST: The lungs are clear and expanded. There is no demonstrated pleural abnormality. Normal size heart. Normal mediastinum and nikhil. Normal visualized pulmonary arteries. Normal visualized aortic arch and descending thoracic aorta. Normal visualized thoracic spine. Normal visualized ribs, clavicles, and shoulders. There is no demonstrated abnormality of the visualized soft tissue structures of the upper abdomen. RAD/Ribs Uni Min 3V w/PA Chest IMPRESSION: RIBS: Fractured fourth rib, age-indeterminate. CHEST: Normal x-ray examination of the chest. Electronically Signed: Brown Donis MD at 23:22 EST ,
--- NOTE | 2021-05-27 23:22 | EDS_ITS ---
HPI Narrative Narrative: Patient is a 2-year-old male who states that this afternoon he was trying to load cattle onto a trailer. He states he was standing in front of one of the cows when it decided to discharge him and knocked him towards the ground. He states the child and stepped on him a few times as it was crossing over him. He denies hitting his head any loss of consciousness or blood thinner use. He reports that this injury occurred 8 to 10 hours ago but he has been having increasing pain in his chest and back region. With concern for underlying rib fracture he was brought in for evaluation. PFSH PFSH Home Medications doxycycline monohydrate 100 mg PO BID #84 cap 07/03/18 [Rx Last Taken Unknown] meloxicam 7.5 mg PO BID tablet 07/03/18 [Rx Last Taken Unknown] cephalexin 500 mg PO TID 7 Days #21 cap 05/28/21 [Rx Last Taken Unknown] oxycodone-acetaminophen [Endocet] 1 tab PO Q6H PRN 3 Days #12 tab 05/28/21 [Rx Last Taken Unknown] Allergy/AdvReac Type Severity Reaction Status Date / Time amoxicillin Allergy Other Verified 07/01/18 11:47 cillin's Allergy Rash/sob Uncoded 07/01/18 09:31 Social History Smoking Status: Former smoker ROS ROS ED Constitutional Constitutional ED: Denies chills or fever(s) Eyes Eyes: Denies change in vision ENT ENT ED: Denies sore throat Cardiovascular Cardiovascular: Denies chest pain Respiratory/Chest Respiratory/Chest: Denies cough or dyspnea Gastrointestinal Gastrointestinal: Reports abdominal pain; Denies diarrhea, nausea or vomiting Genitourinary Genitourinary ED: Denies dysuria or hematuria Musculoskeletal Musculoskeletal: Reports back pain; Denies myalgias Integumentary Reports Abrasions; Denies rash Neurologic Neurologic: Denies headache(s) Hematologic/Lymphatic Hematologic/Lymphatic: Denies easy bleeding or easy bruising EXAM Physical Exam Const Positive well nourished and well developed General Appearance ED: well developed HEENT Reports moist mucous membranes HEENT Narrative: No signs of depressed or basilar skull fracture Eyes PERRL and EOMs intact bilaterally Neck supple Neck Narrative: No bony deformity or step-off of the cervical spine no midline pain with palpation Chest Wall Chest Narrative: Patient has reproducible right anterior lateral chest wall pain with palpation over top rib regions 4-10 without bony deformity or crepitance noted Resp normal respiratory effort and clear to auscultation bilaterally Resp Narrative: Breath sounds are diminished throughout but overall clear to auscultation Cardio regular rate and regular rhythm GI non-distended GI Narrative: Patient has ecchymosis in the suprapubic area consistent with being stepped on without obvious guarding or rigidity no organomegaly or pulsatile mass Auscultation: normoactive bowel sounds Palpation: soft Extremity normal to inspection Neuro oriented x3 and CN's II-XII intact bilaterally Sensorium / Orientation: alert Motor Exam: strength 5/5 throughout Psych mental status grossly normal Skin no rashes or lesions noted Skin Narrative: Ecchymosis in the suprapubic region as documented above MDM MDM MDM Narrative Medical decision making narrative: Patient presented to the ER multiple hours after his trauma. He had no signs of damage to his head and no report or use of blood thinners or bleeding disorder. With the rib pain I was concerned for rib fracture versus a possible pneumothorax I elected perform a right rib series. With the bruising over top of his bladder I also elected to perform a urine sample. The x-ray showed a right fourth rib fracture but no pneumothorax or hemothorax. The urine showed a small amount of blood but there was also +3 bacteria. With the bacteria present the urine I feel the blood is secondary to this and not from trauma. On reevaluation his abdomen is still slightly tender over top the area of ecchymosis but otherwise nonsurgical. Therefore I will place the patient on antibiotics and he can be reevaluated by his family doctor in 7 to 10 days and if blood persists at that time follow-up with urology. Otherwise this patient has stable vitals and no pneumothorax he is safe for discharge Radiography Diagnostic Testing: Clinical Impression(s) from Imaging Studies Ribs w/Chest X-Ray 05/27/21 23:00 IMPRESSION: RIBS: Fractured fourth rib, age-indeterminate. CHEST: Normal x-ray examination of the chest. Electronically Signed: Brown Donis MD at 23:22 EST Reading Location ID and State: [address] [place] [address] , Service support , Discharge Plan Triage ED Provider: Shekhar Ellis Dx/Rx/DC Orders Clinical Impression: Right rib fracture, UTI (urinary tract infection) Prescriptions: New oxycodone-acetaminophen [Endocet] 5-325 mg tablet 1 tab PO Q6H PRN (Reason: pain) 3 Days Qty: 12 RF: 0 cephalexin 500 mg capsule 500 mg PO TID 7 Days Qty: 21 RF: 0 No Action meloxicam 7.5 MG tablet 7.5 mg PO BID RF: 0 doxycycline monohydrate 100 MG capsule 100 mg PO BID Qty: 84 RF: 0 Primary Care Provider: Jose You Referrals: Jose You MD [Primary Care Provider] - Disposition Disposition: Home, Self Care
[2021-05-28 00:39] LABS: Bacteria 3+ /hpf (None Seen); Red Blood Cells-Urine 0-5 SEEN /hpf (0-5); White Blood Cells 25-50 SEEN /hpf (0-5)
== END 2021-05-28 00:44 | disposition home or self-care (01) ==
PROVIDERS: Emergency Provider Emergency Medicine; PCP Family Medicine; Visit Provider Emergency Medicine
DX: S22.31XA Fracture of one rib, right side, initial encounter for closed fracture (principal); Z87.891 Personal history of nicotine dependence; N39.0 Urinary tract infection, site not specified; W55.89XA Other contact with other mammals, initial encounter
CPT/HCPCS: 71101; 81001; 96372; 99283

== ENCOUNTER → 2021-11-23 | Outpatient (CLI) | payer BC, SELFPAY ==
[2021-11-23 12:53] LABS: Anion Gap 8 (5-15); BUN 13 mg/dL (7-18); BUN/Creat Ratio 16.9 RATIO (10-20); Calcium,Total 9.2 mg/dL (8.5-10.1); Chloride 103 mmol/L (98-107); Cholesterol 125 mg/dL (200); Creatinine, Serum 0.77 mg/dL (0.70-1.30); EST Glomerular Filtration Rate 109 mL/min (>60); Est Glom Filt Rate - Afr Amer 132 mL/min (>60); Glucose 86 mg/dL (74-106); High Density Lipoprotein 74 mg/dL; Potassium 4.1 mmol/L (3.5-5.1); Sodium Level 136 mmol/L (136-145); Triglycerides 33 mg/dL; Very Low Density Lipoprotein 7 mg/dL (5-40)
== END | disposition home or self-care (01) ==
LOC: MFPLAB 10:26
PROVIDERS: PCP Family Medicine; Referring Provider Family Medicine; Visit Provider Family Medicine
DX: Z00.00 Encounter for general adult medical examination without abnormal findings (principal)
CPT/HCPCS: 36415; 80048; 80061; 82043; 82570

== ENCOUNTER → 2021-12-04 | Outpatient (CLI) | payer BC, SELFPAY ==
--- NOTE | 2021-12-04 06:45 | CT_ITS ---
STUDY: LOW DOSE CT LUNG CANCER SCREENING REASON FOR EXAM: Male, 61 years old. Current smoker with approximate 40 pack-year history. RADIATION DOSAGE (If Supplied By Facility): CTDIvol = ( 3.02 ) mGy, DLP = ( 106.46 ) mGycm TECHNIQUE: No contrast was administered. Low dose technique was utilized (average mAS-38 and kVp 120). 1.25 mm axial source images with a slice interval of 1.25-mm were reconstructed in lung windows. 2.5 mm axial source images with a slice interval of 2.5-mm were reconstructed in lung windows. 5.0 mm axial source images with a slice interval of 5.0-mm were reconstructed in soft tissue windows. COMPARISON: 10/14/2020. NODULES: Nodule #: 1 Density: Solid Lung location: Left upper lobe: 1.1 cm from pleura Location in series: Series Number: 2 Image: 23 Size - D1 x D2 mm: 1 x 1 mm: 1 mm average diameter Margin: Smooth Shape: Rounded Calcification: Yes Fat: No Temporal comparison: Stable Nodule #: 2 Density: Solid Lung location: Right upper lobe: 1 cm from pleura Location in series: Series Number: 2 Image: 34 Size - D1 x D2 mm: 2 x 2 mm: 2 mm average diameter Margin: Smooth Shape: Round Calcification: Yes Fat: No Temporal comparison: Stable Nodule #: 3 Density: Solid Lung location: Right upper lobe: 0.4 cm from pleura Location in series: Series Number: 2 Image: 58 Size - D1 x D2 mm: 5 x 4 mm: 5 mm average diameter Margin: Irregular Shape: Round Calcification: Yes Fat: No Temporal comparison: Stable Total lung nodules (excluding granulomas): 0 Emphysema: No Endobronchial lesion: No Aorta: Normal CORONARY ARTERIES: Coronary artery calcification are not present. Heart: Normal Pulmonary artery: Normal Mediastinal nodes: There are calcified mediastinal and hilar lymph nodes. Other chest and abdominal findings: Degenerative changes of the thoracic spine. Calcified granulomata in the spleen. CT/Low Dose CT Lung Screening IMPRESSION: Lung-RADS category 1 - Continue annual screening with LDCT in 12 months. IMPORTANT NOTES FOR USE: ACR Lung-RADS Version 1.1 Assessment Categories Release Date: 2018 Category: Coded 0-4 bases on nodule(s) with highest degree of suspicion. Negative screen is defined as categories 1 and 2; a positive screen is defined as categories 3 and 4. Category 3 and 4A nodules that are unchanged on interval CT should be coded as category 2, and individuals returned to screening in 12 months. Category 4X: Category 3 or 4 nodules with additional imaging findings that increase the suspicion of lung cancer, such as spiculation, GGN that doubles in size in 1 year, enlarged lymph notes, etc. Category Modifiers: S (significant finding unrelated to lung cancer) Electronically Signed: Marv Kim DO at 20:28 EDT Reading Location ID and State: [address] [place] [address] Tel [phone], Service support ,
== END | disposition home or self-care (01) ==
LOC: CT 06:44
PROVIDERS: PCP Family Medicine; Referring Provider Family Medicine; Visit Provider Family Medicine
DX: Z12.2 Encounter for screening for malignant neoplasm of respiratory organs (principal); F17.200 Nicotine dependence, unspecified, uncomplicated
CPT/HCPCS: 71271

== ENCOUNTER → 2022-05-22 | Outpatient (CLI) | payer BC, SELFPAY ==
[2022-05-22 10:34] LABS: Microalbumin,Random Urine 11.6 mg/L (NO RANGE EST.); Microalbumin:Creatinine Ratio 21.5 mg/g CRE (<30 mg/g CRE)
[2022-05-22 10:37] LABS: Anion Gap 4 (5-15); BUN 17 mg/dL (7-18); BUN/Creat Ratio 22.2 RATIO (10-20); Calcium,Total 9.3 mg/dL (8.5-10.1); Chloride 104 mmol/L (98-107); Creatinine, Serum 0.77 mg/dL (0.70-1.30); EST Glomerular Filtration Rate 110 mL/min (>60); Est Glom Filt Rate - Afr Amer 133 mL/min (>60); Glucose 103 mg/dL (74-106); Potassium 4.5 mmol/L (3.5-5.1); Sodium Level 137 mmol/L (136-145)
== END | disposition home or self-care (01) ==
LOC: MFPLAB 09:28
PROVIDERS: PCP Family Medicine; Referring Provider Family Medicine; Visit Provider Family Medicine
DX: I10 Essential (primary) hypertension (principal)
CPT/HCPCS: 36415; 80048; 82043; 82570

== ENCOUNTER → 2022-11-26 | Outpatient (CLI) | payer BC, SELFPAY ==
[2022-11-26 13:32] LABS: Anion Gap 7 (5-15); BUN 11 mg/dL (7-18); BUN/Creat Ratio 15.2 RATIO (10-20); Calcium,Total 9.1 mg/dL (8.5-10.1); Chloride 101 mmol/L (98-107); Cholesterol 125 mg/dL (200); Creatinine, Serum 0.72 mg/dL (0.70-1.30); EST Glomerular Filtration Rate 117 mL/min (>60); Est Glom Filt Rate - Afr Amer 142 mL/min (>60); Glucose 96 mg/dL (74-106); High Density Lipoprotein 91 mg/dL; PSA,Total - Annual Screen 1.74 ng/mL (0.00-4.00); Potassium 4.3 mmol/L (3.5-5.1); Sodium Level 132 mmol/L (136-145); Triglycerides 14 mg/dL; Very Low Density Lipoprotein 3 mg/dL (5-40)
== END | disposition home or self-care (01) ==
LOC: MFPLAB 10:42
PROVIDERS: PCP Family Medicine; Visit Provider Nurse Practitioner Family
DX: Z12.5 Encounter for screening for malignant neoplasm of prostate (principal); Z13.220 Encounter for screening for lipoid disorders; Z13.1 Encounter for screening for diabetes mellitus
CPT/HCPCS: 36415; 80048; 80061; 84153; G0103

== ENCOUNTER → 2022-12-12 | Outpatient (CLI) | payer BC, SELFPAY ==
--- NOTE | 2022-12-12 07:51 | CT_ITS ---
STUDY: LOW DOSE CT LUNG CANCER SCREENING REASON FOR EXAM: Male, 62 years old. 1PPD X 44 YEARS RADIATION DOSAGE (If Supplied By Facility): CTDIvol = ( 3.02 ) mGy, DLP = ( 112.12 ) mGycm TECHNIQUE: No contrast was administered. Low dose technique was utilized (average mAS-38 and kVp 120). 1.25 mm axial source images with a slice interval of 1.25-mm were reconstructed in lung windows. 2.5 mm axial source images with a slice interval of 2.5-mm were reconstructed in lung windows. 5.0 mm axial source images with a slice interval of 5.0-mm were reconstructed in soft tissue windows. COMPARISON: Comparison is made with prior examination of December 04, 2021. NODULES: Stable calcified granuloma in the posterior aspect of the right upper lobe medially. Stable 1 mm noncalcified nodule in the peripheral medial posterior aspect of the left upper lobe. Stable calcified granuloma in the anterior aspect of the right upper lobe. Stable 4 mm noncalcified nodule in the peripheral lateral aspect of the right upper lobe as seen on axial image #87. Emphysema: Mild degree of emphysematous changes. Endobronchial lesion: Unremarkable Aorta: Unremarkable. CORONARY ARTERIES: Coronary artery calcification is not seen. Thickening of the anterior pericardium. Heart: Unremarkable Pulmonary artery: Unremarkable Mediastinal nodes: Normal appearing mediastinal lymph nodes. Other chest and abdominal findings: CT/Low Dose CT Lung Screening IMPRESSION: Lung-RADS category 2 - Continue annual screening with LDCT in 12 months. IMPORTANT NOTES FOR USE: ACR Lung-RADS Version 1.1 Assessment Categories Release Date: 2018 Category: Coded 0-4 bases on nodule(s) with highest degree of suspicion. Negative screen is defined as categories 1 and 2; a positive screen is defined as categories 3 and 4. Category 3 and 4A nodules that are unchanged on interval CT should be coded as category 2, and individuals returned to screening in 12 months. Category 4X: Category 3 or 4 nodules with additional imaging findings that increase the suspicion of lung cancer, such as spiculation, GGN that doubles in size in 1 year, enlarged lymph notes, etc. Category Modifiers: S (significant finding unrelated to lung cancer) Electronically Signed: Pedro Mendoza MD at 15:21 EDT ,
== END | disposition home or self-care (01) ==
PROVIDERS: PCP Family Medicine; Referring Provider Nurse Practitioner Family; Visit Provider Nurse Practitioner Family
DX: F17.200 Nicotine dependence, unspecified, uncomplicated (principal)
CPT/HCPCS: 71271

== ENCOUNTER → 2023-05-28 | Outpatient (CLI) | payer BC, SELFPAY ==
[2023-05-28 09:57] LABS: Absolute Lymphocyte Count 1.29 X10^3/uL (0.83-4.51); Absolute Neutrophil Count 3.1 X10^3/uL (2.0-7.7); Basophil# 0.09 X10^3/uL; Basophil% 1.6 % (0-1); Eosinophil# 0.42 X10^3/uL; Eosinophils% 7.6 % (0-5); Hematocrit 40.4 % (40-54); Hemoglobin 13.1 g/dL (13.0-16.5); Lymphocyte # 1.29 X10^3/ul (0.83-4.51); Lymphocyte % 23.3 % (19-41); Mean Corp Hgb Conc 32.4 g/dL (32-36); Mean Corpuscular Hgb 29.6 pg (27.0-32.0); Mean Corpuscular Volume 91.2 fL (80-94); Mean Platelet Vol. 8.9 fl (6.2-12.0); Monocyte# 0.65 X10^3/uL; Monocyte% 11.7 % (0-10); NRBC Flagged by Analyzer 0 % (0-5); Neutrophil # 3.07 X10^3/uL (2.7-7.7); Neutrophil % 55.4 % (47-70); Platelet Count 320 K/mm3 (150-450); RBC Distribution Width CV 14.1 % (11.6-14.6); RBC Distribution Width SD 47.3 fl (35.1-43.9); Red Blood Count 4.43 M/mm3 (4.6-6.2); White Blood Count 5.5 K/mm3 (4.4-11.0)
[2023-05-28 10:17] LABS: Osmolality, Serum 289 mOsm/KG (280-301); Osmolality, Urine 598 mOsm/KG
[2023-05-28 10:41] LABS: Microalbumin,Random Urine 13.7 mg/L (NO RANGE EST.); Urine Sodium 66 mmol/L (Not Establ.)
[2023-05-28 11:06] LABS: ALB/GLOB Ratio 1.2 RATIO (0.9-2.4); AST(SGOT) 15 U/L (15-37); Alanine Aminotransfer ALT/SGPT 22 U/L (16-61); Albumin, Serum 3.8 g/dL (3.2-5.0); Alkaline Phosphatase 68 U/L (45-117); Anion Gap 4 (5-15); BUN 17 mg/dL (7-18); BUN/Creat Ratio 23.6 RATIO (10-20); Calcium,Total 8.7 mg/dL (8.5-10.1); Chloride 103 mmol/L (98-107); Cholesterol 125 mg/dL (200); Creatinine, Serum 0.72 mg/dL (0.70-1.30); EST Glomerular Filtration Rate 117 mL/min (>60); Est Glom Filt Rate - Afr Amer 142 mL/min (>60); Globulin 3.3 g/dL (2.2-4.2); Glucose 100 mg/dL (74-106); High Density Lipoprotein 78 mg/dL; Potassium 4.5 mmol/L (3.5-5.1); Protein, Total 7.1 g/dL (6.4-8.2); Sodium Level 132 mmol/L (136-145); Thyroid Stim Hormone (TSH) 2.26 uIU/mL (0.358-3.74); Triglycerides 33 mg/dL; Very Low Density Lipoprotein 7 mg/dL (5-40)
== END | disposition home or self-care (01) ==
LOC: MTLAB 08:33
PROVIDERS: PCP Family Medicine; Referring Provider Family Medicine; Visit Provider Family Medicine
DX: I10 Essential (primary) hypertension (principal); R79.89 Other specified abnormal findings of blood chemistry; Z13.220 Encounter for screening for lipoid disorders
CPT/HCPCS: 36415; 80053; 80061; 82043; 82570; 83930; 83935; 84300; 84443; 85025

== ENCOUNTER → 2023-06-27 | Outpatient (CLI) | payer BC, SELFPAY ==
--- NOTE | 2023-06-27 12:32 | US_ITS ---
STUDY: RENAL ULTRASOUND - COMPLETE REASON FOR EXAM: Male, 62 years old. Hypo-osmolality and hyponatremia TECHNIQUE: Ultrasound evaluation of the kidneys was performed with real-time and static willett-scale imaging. COMPARISON: None. FINDINGS: RIGHT KIDNEY: Normal location of the right kidney, which is normal in size. The right kidney measures 11.9 x 5.6 x 4.7 cm. There is a normal cortex of the right kidney. The renal cortex measures 1.5 cm. There is no right renal mass or cyst. There are no right renal calculi. There is no right hydronephrosis. DISTAL RIGHT URETER: There is non-visualization of the distal right ureter. There is no demonstrated right ureterovesical junction calculus. There is a visualized right ureteral jet. LEFT KIDNEY: Normal location of the left kidney, which is normal in size. The left kidney measures 10.4 x 4.7 x 5.9 cm. There is a normal cortex of the left kidney. The renal cortex measures 1.7 cm. There is no left renal mass or cyst. There are no left renal calculi. There is no left hydronephrosis. DISTAL LEFT URETER: There is non-visualization of the distal left ureter. There is no demonstrated left ureterovesical junction calculus. There is a visualized left ureteral jet. BLADDER: The distended urinary bladder has a volume of 197 ml. Mild circumferential thickening and diffuse trabeculation of the bladder wall is demonstrated, suggesting chronic cystitis. There is no demonstrated mass within the urinary bladder. There are no demonstrated bladder calculi. US/Kidney and Bladder IMPRESSION: 1. Mild circumferential thickening and diffuse trabeculation of the bladder wall is demonstrated, suggesting chronic cystitis Electronically Signed: Franklyn Shine MD at 15:57 EST ,
== END | disposition home or self-care (01) ==
LOC: US 12:32
PROVIDERS: PCP Family Medicine; Referring Provider Family Medicine; Visit Provider Family Medicine
DX: R79.89 Other specified abnormal findings of blood chemistry (principal); I10 Essential (primary) hypertension; E87.1 Hypo-osmolality and hyponatremia; R82.998 Other abnormal findings in urine
CPT/HCPCS: 76770

== ENCOUNTER → 2023-10-03 | Outpatient (CLI) | payer BC, SELFPAY ==
[2023-10-03 10:26] LABS: Osmolality, Urine 418 mOsm/KG
[2023-10-03 10:29] LABS: Urine Sodium 63 mmol/L (Not Establ.)
[2023-10-03 10:33] LABS: Osmolality, Serum 281 mOsm/KG (280-301)
[2023-10-03 10:40] LABS: ALB/GLOB Ratio 1.4 RATIO (0.9-2.4); AST(SGOT) 14 U/L (15-37); Alanine Aminotransfer ALT/SGPT 21 U/L (16-61); Alkaline Phosphatase 65 U/L (45-117); Anion Gap 5 (5-15); BUN 15 mg/dL (7-18); BUN/Creat Ratio 21.5 RATIO (10-20); Chloride 101 mmol/L (98-107); EST Glomerular Filtration Rate 122 mL/min (>60); Est Glom Filt Rate - Afr Amer 147 mL/min (>60); Globulin 2.9 g/dL (2.2-4.2); Glucose 97 mg/dL (74-106); Potassium 4.4 mmol/L (3.5-5.1); Protein, Total 6.9 g/dL (6.4-8.2); Sodium Level 132 mmol/L (136-145)
[2023-10-03 10:49] LABS: Absolute Lymphocyte Count 1.25 X10^3/uL (0.83-4.51); Absolute Neutrophil Count 2.9 X10^3/uL (2.0-7.7); Eosinophil# 0.18 X10^3/uL; Eosinophils% 3.6 % (0-5); Hematocrit 39.9 % (40-54); Lymphocyte # 1.25 X10^3/ul (0.83-4.51); Lymphocyte % 25.2 % (19-41); Mean Corp Hgb Conc 32.6 g/dL (32-36); Mean Corpuscular Hgb 29.4 pg (27.0-32.0); Mean Corpuscular Volume 90.3 fL (80-94); Mean Platelet Vol. 9.2 fl (6.2-12.0); Monocyte# 0.49 X10^3/uL; Monocyte% 9.9 % (0-10); NRBC Flagged by Analyzer 0 % (0-5); Neutrophil # 2.93 X10^3/uL (2.7-7.7); Neutrophil % 58.9 % (47-70); Platelet Count 341 K/mm3 (150-450); RBC Distribution Width CV 14.2 % (11.6-14.6); RBC Distribution Width SD 47.3 fl (35.1-43.9); Red Blood Count 4.42 M/mm3 (4.6-6.2)
[2023-10-04 19:47] LABS: Microalbumin:Creatinine Ratio 12.1 mg/g CRE (<30 mg/g CRE)
== END | disposition home or self-care (01) ==
LOC: MFPLAB 08:57
PROVIDERS: PCP Family Medicine; Visit Provider Family Medicine
DX: I10 Essential (primary) hypertension (principal); J31.0 Chronic rhinitis; R82.998 Other abnormal findings in urine
CPT/HCPCS: 36415; 80053; 82043; 82570; 83930; 83935; 84300; 85025

== ENCOUNTER → 2024-05-04 | Outpatient (CLI) | payer BC, SELFPAY ==
[2024-05-04 11:02] LABS: PSA,Total - Annual Screen 1.19 ng/mL (0.00-4.00)
[2024-05-04 12:11] LABS: Hemoglobin A1c 5.2 % (3.8-5.6)
== END | disposition home or self-care (01) ==
PROVIDERS: PCP Family Medicine; Visit Provider Nurse Practitioner Family
DX: Z13.1 Encounter for screening for diabetes mellitus (principal); Z12.5 Encounter for screening for malignant neoplasm of prostate
CPT/HCPCS: 36415; 83036; 84153; G0103

== ENCOUNTER 2024-05-23 08:41 | Outpatient (CLI) | payer BC, SELFPAY ==
--- NOTE | 2024-05-23 08:45 | CT_ITS ---
STUDY: LOW DOSE CT LUNG CANCER SCREENING REASON FOR EXAM: Male, 63 years old. Screening- 1PPD X 44 YEARS. NOW 5 CIGS PER DAY RADIATION DOSAGE (If Supplied By Facility): CTDIvol = ( 3.02 ) mGy, DLP = ( 112.87 ) mGycm TECHNIQUE: No contrast was administered. Low dose technique was utilized (average mAS-38 and kVp 120). 1.25 mm axial source images with a slice interval of 1.25-mm were reconstructed in lung windows. 2.5 mm axial source images with a slice interval of 2.5-mm were reconstructed in lung windows. 5.0 mm axial source images with a slice interval of 5.0-mm were reconstructed in soft tissue windows. COMPARISON: Comparison is made with prior study dated December 12, 2022. NODULES: Stable punctate granuloma in the posterior segment of the right upper lobe. Stable 1 mm noncalcified nodule in the peripheral medial portion of the left upper lobe. Stable 4 mm noncalcified nodule in the peripheral lateral aspect of the right upper lobe as seen on axial image #98. Emphysema: Mild degree of emphysematous changes. Endobronchial lesion: None Aorta: Unremarkable CORONARY ARTERIES: Coronary artery calcification is seen. Heart: Unremarkable Pulmonary artery: Unremarkable Mediastinal nodes: Small calcified subcarinal lymph nodes and right hilar lymph nodes. Other chest and abdominal findings: CT/Low Dose CT Lung Screening IMPRESSION: Lung-RADS category 2 - Continue annual screening with LDCT in 12 months. IMPORTANT NOTES FOR USE: ACR Lung-RADS Version 1.1 Assessment Categories Release Date: 2018 Category: Coded 0-4 bases on nodule(s) with highest degree of suspicion. Negative screen is defined as categories 1 and 2; a positive screen is defined as categories 3 and 4. Category 3 and 4A nodules that are unchanged on interval CT should be coded as category 2, and individuals returned to screening in 12 months. Category 4X: Category 3 or 4 nodules with additional imaging findings that increase the suspicion of lung cancer, such as spiculation, GGN that doubles in size in 1 year, enlarged lymph notes, etc. Category Modifiers: S (significant finding unrelated to lung cancer) Electronically Signed: Pedro Mendoza MD at 13:44 EST ,
== END 2024-05-23 23:59 | disposition home or self-care (01) ==
LOC: CT 08:43
PROVIDERS: PCP Family Medicine; Referring Provider Nurse Practitioner Family; Visit Provider Nurse Practitioner Family
DX: Z12.2 Encounter for screening for malignant neoplasm of respiratory organs (principal); R91.8 Other nonspecific abnormal finding of lung field
CPT/HCPCS: 71271

== ENCOUNTER → 2024-11-03 | Outpatient (CLI) | payer BC, SELFPAY ==
[2024-11-03 10:38] LABS: AST(SGOT) 28 U/L (<=37); Alanine Aminotransfer ALT/SGPT 25 U/L (<=46); Albumin, Serum 4.3 g/dL (3.4-4.8); Alkaline Phosphatase 70 U/L (40-129); Anion Gap 9 (5-15); BUN 10 mg/dL (4-19); BUN/Creat Ratio 15.0 RATIO (10-20); Calcium,Total 9.0 mg/dL (7.6-11.0); Carbon Dioxide 26.3 mmol/L (21.0-32.0); Chloride 99 mmol/L (98-108); Globulin 2.2 g/dL (2.2-4.2); Glucose 98 mg/dL (70-99); Potassium 4.6 mmol/L (3.3-5.1)
[2024-11-04 19:18] LABS: Creatinine, Urine (random) 53.00 mg/dL (39.00-259.00)
[2024-11-04 19:20] LABS: Microalbumin,Random Urine 51.8 mg/L (NO RANGE EST.)
== END | disposition home or self-care (01) ==
LOC: MFPLAB 09:20
PROVIDERS: PCP Family Medicine; Referring Provider Family Medicine; Visit Provider Family Medicine
DX: I10 Essential (primary) hypertension (principal)
CPT/HCPCS: 36415; 80053; 82043; 82570